=== PATIENT | female | born 1985 | race Caucasian/White ===

== ENCOUNTER 2024-08-21 08:02 | Emergency (ER) | payer OTHER, SELFPAY ==
--- NOTE | ~2024-08-21 | XR_ITS ---
XR chest 2V Ordering provider: Misty Mcintyre APRN History: 39 years Female with . fever and cough x 1 week . Comparison: None. FINDINGS: MEDIASTINUM: The cardiac silhouette is not enlarged. LUNGS: No , effusions or pneumothorax. Opacification in the right lower lobe area suggestive of atele ctasis versus pneumonia. Prominent bronchovascular markings bilaterally more on the right side. OTHER: No free air under the diaphragm. IMPRESSION: Right lower lobe pneumonia. Reviewed, dictated and finalized at location A. IMPRESSION: Right lower lobe pneumonia.
[2024-08-21 08:16] VITALS: BP 133/87; PULSE 95; RESP 16; TEMP 36.4; O2SAT 98
--- NOTE | 2024-08-21 08:26 | ED.URI ---
HPI - URI/Sore Throat General Chief Complaint: Upper Respiratory Infection Stated Complaint: cough Time Seen by Provider: 08/21/24 08:29 Source: patient, RN notes reviewed and old records reviewed Mode of arrival: ambulatory Limitations: no limitations History of Present Illness HPI Narrative: patient presents with complaints of cough and fever that have been present for 6 days. She reports occasional wheezing that clears when she coughs. She reports fever has been intermittent, worse at night. She has associated chills and sweats. She has been taking ibuprofen for her symptoms with good results. T-max 103?. No distress at this time. She does report that there have been multiple sick children in her daughter's class school Related Data Home Medications Medication Instructions Recorded Confirmed amlodipine 5 mg tablet 5 mg PO DAILY 08/21/24 08/21/24 norethindrone 1 mg-ethinyl 1 tablet PO DAILY 08/21/24 08/21/24 estradiol 20 mcg (21)-iron 75 mg (7) tablet (Aurovela Fe 1-20 (28)) Allergies Allergy/AdvReac Type Severity Reaction Status Date / Time No Known Allergies Allergy Verified 08/21/24 08:29 Review of Systems Review of Systems: All systems reviewed & are unremarkable except as noted in HPI and below Constitutional: Constitutional: Reports no additional constitutional complaints ENT: Reports system reviewed and no additional complaints, except as documented Cardiovascular: Cardiovascular: Reports as per HPI and Reports no additional cardiovascular complaints Respiratory: Respiratory: Reports as per HPI, Reports no additional respiratory complaints, Reports chest congestion, Reports cough and Reports wheezing Gastrointestinal: Gastrointestinal: Reports no additional gastrointestinal complaints PMFSH Comments At the time of my signature, I reviewed and agree with the nursing past medical, surgical, social, and family history. There is no relevant family history pertinent to the patient complaint. Exam Const: General: cooperative, no acute distress, alert, awake, tired appearing and uncomfortable Orientation/consciousness: oriented to person, oriented to place and oriented to time HENMT: Head: normal to inspection Ears: TM's normal bilaterally Mouth: Yes moist mucous membranes Throat: posterior oropharynx abnormal erythema Resp: Effort & Inspection: normal respiratory effort and able to speak in complete sentences Auscultation: clear to auscultation bilaterally, no crackles, no rales, rhonchi right lower and no wheezes Cardio: Palpation: normal PMI Rate: regular rate Rhythm: regular rhythm Heart sounds: S1 normal heart sound present and S2 normal heart sound present Neuro: General: oriented to person, oriented to place and oriented to time Cranial nerves: Yes CN's II-XII intact bilaterally Psych: Appearance: grossly normal Thought process: Normal thought process present Insight: Good insight present (Psych) Judgement: Good judgement present (Psych) Course Course Level of Care: Express Care Visit Vital Signs Vital signs: Vital Signs Temperature 97.5 F L 08/21/24 08:16 Pulse Rate 95 08/21/24 08:16 Respiratory Rate 16 08/21/24 08:16 Blood Pressure 133/87 08/21/24 08:16 Pulse Oximetry 98 08/21/24 08:16 Oxygen Delivery Room Air 08/21/24 08:16 Temperature 97.5 F L 08/21/24 08:16 Pulse Rate 95 08/21/24 08:16 Respiratory Rate 16 08/21/24 08:16 Blood Pressure 133/87 08/21/24 08:16 Pulse Oximetry 98 08/21/24 08:16 Oxygen Delivery Room Air 08/21/24 08:16 Reviewed MDM - URI/Sore Throat MDM Narrative Medical decision making narrative: patient with right lower lobe pneumonia. Nontoxic appearing, stable for discharge home on p.o. antibiotics. Start doxycycline and albuterol. Follow with primary care provider emergency department for new or worse symptoms. Discharge instructions reviewed with patient, as well as provided in writing per nursing
[2024-08-21 08:49] LABS: EDCOVIDSCREEN Negative (Negative); EDINFLUASCREEN Negative (Negative); EDINFLUBSCREEN Negative (Negative); EDSTREPNEGPOS1 Negative (Negative)
== END 2024-08-21 09:28 | disposition home or self-care (01) ==
PROVIDERS: Emergency Provider Nurse Practitioner Family; PCP Nurse Practitioner Family
DX: J18.1 Lobar pneumonia, unspecified organism (principal); Z20.822 Contact with and (suspected) exposure to COVID-19; I10 Essential (primary) hypertension
CPT/HCPCS: 71046; 87081; 87426; 87804; 87880; 99213; G0463